=== PATIENT | male | born 1985 | race Caucasian/White ===

== ENCOUNTER 2022-09-06 10:32 | Observation (INO) | payer OTHER, SELFPAY ==
[2022-09-06] VITALS (9 sets, daily range): BP systolic 111–130; BP diastolic 66–98; PULSE 61–94; RESP 16–20; TEMP 36.6–37.7; O2SAT 97–100; BMI 19.6
--- NOTE | ~2022-09-06 | XR_ITS ---
EXAMINATION: XR sm bowel follow through DATE: 09/07/2022 10:18 INDICATION: Small bowel obstruction. Intussusception. TECHNIQUE: Oral contrast was administered, and a time course of radiographs of the abdomen was obtain ed. Fluoroscopy of the small bowel was performed. Fluoroscopy exposure time was 0.8 minutes. The tota l number of images was 22. COMPARISON: CT abdomen and pelvis 09/06/2022 FINDINGS: There are multiple dilated loops of small bowel. There is no focal transition point. The terminal ile um is not well visualized. Transit time from the stomach to proximal colon was approximately 1 hour. IMPRESSION: 1. Dilated small bowel without focal transition point, consistent with adynamic ileus. No intussuscep tion visualized. Reviewed, dictated and finalized at location A. IMPRESSION: 1. Dilated small bowel without focal transition point, consistent with adynamic ileus. No intussusception visualized.
--- NOTE | ~2022-09-06 | XR_ITS ---
XR chest 2V DATE: 09/06/2022 11:18 INDICATION: Left-sided chest pain TECHNIQUE: AP and lateral views COMPARISON: None FINDINGS: Normal heart size. No hilar or mediastinal enlargement. No pulmonary infiltrate or consolid ation, pleural effusion or pulmonary vascular congestion or pneumothorax. IMPRESSION: No active cardiopulmonary disease Reviewed, dictated and finalized at location B.
--- NOTE | ~2022-09-06 | CT_ITS ---
EXAMINATION: CT abdomen pelvis w con INDICATION: Abdominal pain TECHNIQUE: Computed tomographic images of the abdomen and pelvis were obtained after the administrati on of 100 cc of Omnipaque 350 intravenous contrast. The dose-length product (DLP) was 211.48 mGy-cm. Automated exposure control and iterative reconstruction technique were employed. COMPARISON: None available FINDINGS: The lung bases are clear. The heart size is normal. The liver, spleen, pancreas, gallbladde r, and adrenal glands are normal. The kidneys are unremarkable. There are multiple dilated loops of s mall bowel which continue to the level of a small bowel intussusception in the right mid abdomen. The re is no free intraperitoneal gas. No pathologically enlarged abdominal or pelvic lymph nodes are misty ntified. IMPRESSION: 1. Small bowel obstruction due to small bowel intussusception in the right mid abdomen. Reviewed, dictated and finalized at location F.
--- NOTE | 2022-09-06 10:34 | ECG_ITS ---
Measurements Intervals Pep Rate: 76 P: -37 OH: 138 QRS: 39 QRSD: 90 T: 47 QT: 400 QTc: 452 Interpretive Statements SINUS RHYTHM BASELINE ARTIFACT- III NORMAL ECG NO PREVIOUS ECG AVAILABLE FOR COMPARISON Electronically Signed On 09-06-2022 13:41:41 CDT by Marc Vallejo D.O.
--- NOTE | 2022-09-06 12:09 | PC.NURSE ---
pt reports he is a daily drinker and takes xanax he buys off the street. pt reports his last etoh intake was tuesday.
--- NOTE | 2022-09-06 12:33 | ED.CHESTPAIN ---
HPI - Chest Pain General Chief Complaint: Chest Pain Stated Complaint: Chest pain Time Seen by Provider: 09/06/22 12:02 Source: RN notes reviewed History of Present Illness HPI narrative: [facility] from [facility] for [facility]. Patient states the pain began approximately an hour prior to arrival the pain is located over the left side of the chest just underneath the left breast and described as sharp and stabbing in nature. States that the pain does not radiate and it does improve with laying down flat he notes mild shortness of breath with the pain. States the pain is improved with this time is only mildly present. He denies any fevers or chills states he has been having some abdominal pain in the upper abdomen as well but denies any vomiting or diarrhea. States he does have a history of cardiac stents placed 3 years ago but does not follow with cardiology does admit to smoking as well as doing fentanyl Related Data Home Medications Medication Instructions Recorded Confirmed No Home Medications 09/06/22 09/06/22 Allergies Allergy/AdvReac Type Severity Reaction Status Date / Time No Known Allergies Allergy Verified 09/06/22 12:09 Review of Systems Review of Systems: Gen.: Denies fevers or chills ENT: Denies congestion Respiratory: Reports shortness of breath CV: Reports chest pain GI: Reports upper abdominal pain, denies nausea, emesis or diarrhea denies burning, urgency, frequency or hematuria Musculoskeletal: Denies back pain or muscle pain Neuro: Denies numbness, tingling, weakness or focal weakness Skin: Denies rash Except as documented, all other systems reviewed and negative [facility] Past Medical History Medical History Coronary artery disease Surgical History Surgical History No pertinent past surgical history Social History Social History Smoking status: Current every day smoker Alcohol intake: current Alcohol use details: Prior to being incarcerated Substance use: current Substance use type: heroin and prescription drug Last use: 09/03/22 Living arrangements: incarcerated Exam Narrative: APPEARANCE: No acute distress, nontoxic, resting in bed HEENT: Normocephalic, atraumatic, OMM RESPIRATORY: No respiratory distress, clear to auscultation bilaterally with no rhonchi wheezing or rales CARDIOVASCULAR: RRR s murmur ABDOMINAL: Soft nondistended tender to palpation epigastric, right upper quadrant and left upper quadrant no tenderness in the right lower quadrant left lower quadrant no rebound or guarding MUSCULOSKELETAl: Moves all extremities. No clubbing, cyanosis or edema. NEURO: Awake and alert. Following commands, speech normal, no focal deficits SKIN:: Warm, dry. Normal Color PSYCHIATRIC: Normal affect/mood Course Course Emergency Course: Initial arrival presentation: Discussed with DENTAL TECHNOLOGIST Naida Ramirez for Dr. Alvarado for cardiology presentation work-up feels that the patient has 2 negative troponins may be discharged with follow-up as an outpatient per cardiology Called and discussed with Dr. Tracey for general surgery agrees with consult agrees with plan for NG tube Discussed with MYESHA De La Cruz for Dr. Cano for hospitalist service agrees with admission Discussed with patient and family results of workup and diagnosis. Discussed need for admission. Patient and family understand and agree to current treatment plan Patient is refusing NG tube at this time. I had a long discussion with the patient discussed risks and benefits including bowel perforation and patient continues to refuse NG tube Patient attempted to elope once the police had left the facility. Discussed with patient discussed the severity of his condition and does agree to stay Called discussed Dr. Tracey patient refusing NG
[2022-09-06 12:39] LABS: Basophils Absolute Auto 0.1 K/mm3 (0.0-0.1); Basophils Percent Auto 0.4 % (0.2-1.2); Hematocrit 46.7 % (42.0-52.0); Hemoglobin 16.1 g/dL (14.0-18.0); Immature Granulocyte Absolute 0.03 K/mm3 (0.00-0.031); Immature Granulocyte Percent A 0.2 % (0-0.5); Lymphocytes Absolute Auto 1.54 K/mm3 (0.9-3.2); Lymphocytes Percent Auto 12.4 % (18.3-44.2); Mean Corpuscular HGB Conc 34.5 g/dl (32-36); Mean Corpuscular Hemoglobin 29.9 pg (26-34); Mean Corpuscular Volume 86.8 fl (80-100); Mean Platelet Volume 10.6 fl (7.4-10.4); Monocytes Percent Auto 8.1 % (2.6-8.5); Neutrophils Absolute Auto 9.8 K/mm3 (1.3-6.7); Neutrophils Percent Auto 78.9 % (45.5-73.1); Platelet Count Result 270 k/mm3 (150-375); Red Blood Count 5.38 M/mm3 (4.6-6.20); Red Cell Distribution Width 12.9 % (11.5-14.5); White Blood Count 12.4 K/mm3 (4.5-10.0)
[2022-09-06 12:48] LABS: INR 1.1; Prothrombin Time 13.3 Seconds (11.1-14.7)
[2022-09-06 12:49] LABS: Partial Thromboplastin Time 23.7 SECONDS (22.3-36.8)
[2022-09-06 12:52] LABS: Alanine Aminotransferase 48 U/L (6-50); Albumin Level 4.8 g/dL (3.5-5.1); Alkaline Phosphatase 67 U/L (38-126); Anion Gap 13 mmol/L (8-16); Aspartate Amino Transferase 26 U/L (17-59); Bilirubin,Total 0.7 mg/dL (0.2-1.3); Blood Urea Nitrogen 19 mg/dL (9-20); Calcium 9.4 mg/dL (8.4-10.2); Carbon Dioxide 22 mmol/L (22-30); Chloride 108 mmol/L (98-107); Estimated CRCL calculation 152 ml/min; Estimated Glomerular Filt Rate > 60; Glucose 118 mg/dL (65-110); Lipase 73 U/L (23-300); Potassium 3.6 mmol/L (3.4-5.0); Sodium 143 mmol/L (137-145)
[2022-09-06 13:11] LABS: Troponin I < 0.012 ng/mL (0.000-0.034)
[2022-09-06 13:29] LABS: D Dimer 0.35 ug/mL (<0.48)
--- NOTE | 2022-09-06 15:21 | PM.CNGS ---
Assessment and Plan Assessment and plan (1) Small bowel intussusception: Code(s): K56.1 - Intussusception Status: Acute Assessment and Plan: Patient presenting with chest pain and vomiting. He was found to have abdominal tenderness on exam. CT abdomen/pelvis suggests a small bowel obstruction with a transition point at the small bowel intussusception in the right mid abdomen. Small-bowel intussusception in an adult is typically an incidental finding, but it appears that he has an obstruction secondary to this. He does have some lower abdominal tenderness, but no peritoneal signs. Lactic acid pending. We would recommend NG tube placement, bowel rest, and IV fluid hydration. We will further evaluate with a water-soluble small bowel follow-through. Discussed with the patient that if he appears to have a high-grade obstruction from the intussusception, then he could need exploratory surgery. (2) Small bowel obstruction: Code(s): K56.609 - Unspecified intestinal obstruction, unspecified as to partial versus complete obstruction Status: Acute Assessment and Plan: CT suggests secondary to small bowel intussusception. Continue NG tube decompression, bowel rest, and IV fluids. See plan above. (3) Coronary artery disease: Code(s): I25.10 - Atherosclerotic heart disease of [place] coronary artery without angina pectoris Status: Acute (4) Illicit drug use: Code(s): F19.90 - Other psychoactive substance use, unspecified, uncomplicated Status: Acute (5) Tobacco abuse: Code(s): Z72.0 - Tobacco use Status: Acute Plan I have discussed the patient's case and plan of care with Dr. Tracey. History of Present Illness Consult details Consult date: 09/06/22 Reason for consult: other (Small bowel intussusception with bowel obstruction) Requesting physician: Oneil Sotelo DO Narrative: This is a 36-year-old man with a history of coronary artery disease and who was recently incarcerated 3 days ago, who was brought into the ER today for evaluation of chest pain. The patient admits to drug use, reporting use of heroin and benzodiazepines. He reports prior to being incarcerated, he is typically ?too high? to feel any pain so he is unsure when this started. Since incarceration, he has developed chest pain. He also reports intermittent nausea and vomiting over the past 3 days. Denies any abdominal pain. Due to his persistent chest pain, he was brought in for evaluation. [place] [address]. Lactic acid pending. Troponin negative. EKG negative for ischemic changes. Urine toxicology positive for cocaine. Chest x-ray showed no active cardiopulmonary disease. He was found have abdominal tenderness on exam and had a CT abdomen pelvis with contrast, which showed small bowel obstruction due to small bowel intussusception in the right mid abdomen. Vital signs have been stable with no tachycardia or hypotension. Our service was consulted by the ED physician. He is now seen in the ER with an officer at the bedside. He is passing flatus today and his last bowel movement was last night. He denies any previous abdominal surgeries. Denies having similar pain or an episode like this in the past. Review of Systems Review of Systems: All systems reviewed & are unremarkable except as noted in HPI and below Constitutional: Constitutional: Reports no additional constitutional complaints, Denies chills, Denies fatigue, Denies fever(s) and Denies malaise Eyes: Eyes: Reports no additional eye complaints ENT: Reports system reviewed and no additional complaints, except as documented and Denies dizziness Cardiovascular: Cardiovascular: Reports no additional cardiovascular complaints, Reports chest pain and Denies leg edema Respiratory: Respiratory: Reports no additional respiratory complaints, Denies cough and Denies dyspnea Gastrointestinal: Gastrointestinal: Report
[2022-09-06 15:23] LABS: Amphetamine Screen Urine Negative (Negative); Barbiturate Screen Urine Negative (Negative); Benzodiazepines Screen Urine Negative (Negative); Cannabinoid Screen Urine Negative (Negative); Cocaine Screen Urine Positive (Negative); Methadone Screen Urine Negative (Negative); Opiate Screen Urine Negative (Negative); Phencyclidine Screen Urine Negative (Negative)
--- NOTE | 2022-09-06 16:17 | PC.NURSE ---
attempted ng tube placement x2, pt unable to tolerate. provider aware, no new orders
[2022-09-06] MEDS: PANTOPRAZOLE SODIUM IV 40 MG VIAL IV PUSH (16:25)
[2022-09-06] MEDS: MORPHINE SULFATE (*CRX) 2 MG/ML INJ IV PUSH ×2 (16:26→17:18)
[2022-09-06 16:37] LABS: Lactic Acid Reflex 2.9 mmol/L (0.7-2.0)
[2022-09-06 16:38] LABS: Ethanol < 10 mg/dL (<10)
--- NOTE | 2022-09-06 16:58 | PC.NURSE ---
Provider Kay says, to hold off on NG-tube for now pt reluctant to have it placed
[2022-09-06 16:59] LABS: Troponin I < 0.012 ng/mL (0.000-0.034)
--- NOTE | 2022-09-06 17:00 | PM.IMHP ---
H&P: HPI History of Present Illness Date/Time: 09/06/22 17:00 Chief Complaint: Chest and abdominal pain. Narrative: This is a 36-year-old male with coronary artery disease and polysubstance abuse who presented to the emergency department via EMS for evaluation of chest and abdominal pain. Patient provides the following history. He has been incarcerated for the last 3 days and he started to feel unwell the following day after he was brought in due to what he thought were withdrawal symptoms (he does heroin, Xanax, cocaine daily) to include chest and abdominal pain, nausea, vomiting, and goose bumps. The last couple of days he has developed pain in the left anterior chest that he describes as sharp and stabbing in nature. It does not radiate and he has not noticed any aggravating factors. It seems to improve somewhat when lying flat. He also reports feeling a bit short of breath with that. Today he had some discomfort throughout the abdomen as well and he was brought in for evaluation. He denies fever, pleuritic pain, sensations of racing heart, palpitations, hematemesis, melena, and hematochezia. Pertinent labs include a lactic acid of 2.9 and WBC count of 12.4. Chest x-ray showed no acute cardiopulmonary disease and EKG did not show any acute ST segment changes. Initial troponin was negative. A CT of the abdomen and pelvis showed evidence of a small-bowel obstruction due to small bowel intussusception in the right mid abdomen. He has never had similar symptoms in the past. He reports having a normal bowel movement last night and states he has been passing gas today. Review of Systems Review of Systems: Twelve systems were reviewed. No fever, chills, or sweats. No sinus congestion, headache, sore throat, or cough. Except as documented, all other systems were reviewed and are negative. COUNT INCLUDES [facility] Past Medical History Medical History (Updated 09/06/22 @ 22:56 by Dorothy Villanueva PA-C) Coronary artery disease Polysubstance abuse Tobacco abuse Surgical History Surgical History History of cardiac catheterization History of coronary artery stent placement No pertinent past surgical history Family History Family History (Updated 09/06/22 @ 22:52 by Dorothy Villanueva PA-C) Other Family history unknown Social History Social History (Updated 09/06/22 @ 22:53 by Dorothy Villanueva PA-C) Social History: Surrogate medical decision maker: Maxine Quintanilla, significant other. Code status: Full code. Smoking packs per day: 0.5 Smoking cigarettes per day: 10.0 Smoking status: Current every day smoker Alcohol intake: current Alcohol use details: Social alcohol in moderation. Substance use: current Substance use type: marijuana, crack/cocaine, heroin, painkillers and other Other substance usage details: Benzodiazepines. Last use: 09/03/22 Lack of Transportation: YES Lack of Food: Often True Current Housing: I Do Not Have Housing Concerned About Future Housing: YES Difficulty Paying Gas/Electric Bills: Decline to Answer Difficulty Paying for Meds: Decline to Answer Currently Unemployed: Decline to Answer Education: Decline to Answer Difficulty w/ Childcare or Family Care: Decline to Answer Additional living arrangements comments: Lives with girlfriend 5 children. Spiritual care concerns: No Meds Home Medications and Allergies Home Medications Medication Instructions Recorded Confirmed Type No Home Medications 09/06/22 09/06/22 History Allergies Allergy/AdvReac Type Severity Reaction Status Date / Time No Known Allergies Allergy Verified 09/06/22 12:09 Vital Signs Vital Signs - 24 hr 09/06/22 10:35 09/06/22 12:40 09/06/22 13:39 Temperature 98.6 F Pulse Rate 78 69 Respiratory Rate 16 20 Blood Pressure 129/98 H 112/80 Pulse Oximetry 100 97 97 Oxygen Delivery Room Air Room Air Exam Narrative: Gen
[2022-09-06] MEDS: LORazepam INJ (*CRX) 2 MG/ML VIAL 0.5 MG IV PUSH ×2 (17:18→22:01)
[2022-09-06] MEDS: SODIUM CHLORIDE 0.9% IV 1,000 ML 125 ML IV CONT ×2 (17:18→21:14)
[2022-09-06 18:27] LABS: Troponin I < 0.012 ng/mL (0.000-0.034)
[2022-09-06 19:26] LABS: Reflex Lactic Acid Yes or No Add Lactic
--- NOTE | 2022-09-06 20:42 | ADMGEN ---
This patient, You Erickson, was admitted to IMU Room 214-01. Patient/family oriented to hospital policies and general routines including ID bracelet, bed and alarms, visiting hours, pain management, procedures, bathroom and other care routines, personal items, smoking policy, room service/diet, and visiting hours. Information on how to activate the Rapid Response Team has been discussed. Patient/Family are encouraged to report perceived risks to care and to ask questions if they do not understand what they are told or what they should do.
[2022-09-06] MEDS: MORPHINE SULFATE (*CRX) 4 MG/ML INJ IV PUSH (22:01)
[2022-09-06] MEDS: NICOTINE (*PBKC) 21 MG PATCH 1 PATCH TRANSDERM (23:36)
[2022-09-07] VITALS (8 sets, daily range): BP systolic 114–116; BP diastolic 76–79; PULSE 64–73; RESP 16–18; TEMP 36.4–36.9; O2SAT 99–100
[2022-09-07] MEDS: MORPHINE SULFATE (*CRX) 4 MG/ML INJ IV PUSH ×3 (02:37→10:21)
[2022-09-07] MEDS: LORazepam INJ (*CRX) 2 MG/ML VIAL 0.5 MG IV PUSH ×2 (04:35→10:38)
[2022-09-07 05:15] LABS: Basophils Absolute Auto 0.1 K/mm3 (0.0-0.1); Basophils Percent Auto 0.5 % (0.2-1.2); Eosinophils Percent Auto 0.3 % (0-4.4); Hematocrit 43.9 % (42.0-52.0); Hemoglobin 14.7 g/dL (14.0-18.0); Immature Granulocyte Absolute 0.03 K/mm3 (0.00-0.031); Immature Granulocyte Percent A 0.3 % (0-0.5); Lymphocytes Absolute Auto 2.36 K/mm3 (0.9-3.2); Lymphocytes Percent Auto 22.1 % (18.3-44.2); Mean Corpuscular HGB Conc 33.5 g/dl (32-36); Mean Corpuscular Hemoglobin 29.9 pg (26-34); Mean Corpuscular Volume 89.2 fl (80-100); Mean Platelet Volume 10.8 fl (7.4-10.4); Monocytes Absolute Auto 0.8 K/mm3 (0.1-0.6); Monocytes Percent Auto 7.8 % (2.6-8.5); Neutrophils Absolute Auto 7.4 K/mm3 (1.3-6.7); Platelet Count Result 231 k/mm3 (150-375); Red Blood Count 4.92 M/mm3 (4.6-6.20); Red Cell Distribution Width 12.8 % (11.5-14.5); White Blood Count 10.7 K/mm3 (4.5-10.0)
[2022-09-07 05:22] LABS: Alanine Aminotransferase 38 U/L (6-50); Alkaline Phosphatase 60 U/L (38-126); Anion Gap 10 mmol/L (8-16); Aspartate Amino Transferase 24 U/L (17-59); Blood Urea Nitrogen 20 mg/dL (9-20); Calcium 8.6 mg/dL (8.4-10.2); Carbon Dioxide 22 mmol/L (22-30); Chloride 110 mmol/L (98-107); Estimated CRCL calculation 112 ml/min; Estimated Glomerular Filt Rate > 60; Glucose 104 mg/dL (65-110); Magnesium 2.2 mg/dL (1.6-2.3); Potassium 3.8 mmol/L (3.4-5.0); Sodium 142 mmol/L (137-145)
[2022-09-07] MEDS: SODIUM CHLORIDE 0.9% IV 1,000 ML 125 ML IV CONT ×2 (05:25→13:08)
--- NOTE | 2022-09-07 09:01 | PM.PNGS ---
Progress Note: A&P Assessment and Plan (1) Small bowel intussusception: Code(s): K56.1 - Intussusception Status: Acute Assessment and Plan: CT suggested small bowel obstruction due to small bowel intussusception. Ordered a water-soluble SBFT yesterday that apparently was cancelled at some point, but we were unaware. This has been re-ordered and he is getting this test this morning. Will await results. He did not tolerate multiple attempts at the NG tube in the ER. Will keep him NPO with IV fluid hydration for now. Antiemetic added. (2) Small bowel obstruction: Code(s): K56.609 - Unspecified intestinal obstruction, unspecified as to partial versus complete obstruction Status: Acute Assessment and Plan: Will await SBFT this morning. Bowels are moving, which suggests he does not have a high grade obstruction. Continue IV fluids, NPO. Plan I have discussed the patient's case and plan of care with Dr. Tracey. Subjective Subjective Date/Time Seen: 09/07/22 08:15 Patient reports: flatus, bowel movement, nausea, vomiting and afebrile Interval history: Patient seen this morning prior to going down for the SBFT. At some point, my order for the water-soluble SBFT got cancelled yesterday evening per nursing and they notified the Hospitalist who tried to re-enter the order. Radiology is up at the bedside now to take him down for the test. Per the patient, he reports nausea this morning and states he vomited twice through the night. He also reports multiple large liquid bowel movements through the night. He is still having substernal chest pain and now complaining more of epigastric abdominal pain. Per nursing, they were notified by shift commander that he had three large liquid BMs but they were not told in report that he had been vomiting. Review of Systems Review of Systems: ROS unchanged Exam Const: General: comfortable and no acute distress Nutritional Appearance: thin Orientation/consciousness: patient oriented x3 GI: Inspection: non-distended GI Palp: Yes Soft to palpation, Yes Tenderness to palpation present (GI) (mild diffuse tenderness to palpation), No Guarding due to palpation present (GI), No Rebound tenderness present and Yes Other GI palpation findings present (no peritoneal signs) Auscultation: normal bowel sounds Objective Data Vital Signs Vital Signs: Vital Signs - 24 hr 09/06/22 10:35 09/06/22 12:40 09/06/22 13:39 Temperature 98.6 F Pulse Rate 78 69 Respiratory Rate 16 20 Blood Pressure 129/98 H 112/80 Pulse Oximetry 100 97 97 Oxygen Delivery Room Air Room Air 09/06/22 17:15 09/06/22 19:55 09/06/22 20:51 Temperature 99.8 F H Pulse Rate 68 61 65 Respiratory Rate 18 18 18 Blood Pressure 122/90 111/97 H 130/81 Pulse Oximetry 100 97 100 Oxygen Delivery 09/06/22 20:47 09/06/22 22:00 09/06/22 23:29 Temperature 97.8 F Pulse Rate 94 74 74 Respiratory Rate 18 Blood Pressure 124/66 Pulse Oximetry 99 Oxygen Delivery 09/06/22 21:00 09/07/22 00:00 09/07/22 00:00 Temperature Pulse Rate 72 Respiratory Rate Blood Pressure Pulse Oximetry Oxygen Delivery Room Air Room Air 09/07/22 04:00 09/07/22 02:00 09/07/22 04:00 Temperature 97.7 F Pulse Rate 73 67 64 Respiratory Rate 18 Blood Pressure 114/79 Pulse Oximetry 99 Oxygen Delivery 09/07/22 06:00 09/07/22 04:00 09/07/22 08:00 Temperature 97.6 F Pulse Rate 65 67 Respiratory Rate 16 Blood Pressure 116/76 Pulse Oximetry 100 Oxygen Delivery Room Air Intake/Output Intake/Output: Intake & Output 09/04/22 09/05/22 09/06/22 09/07/22 23:59 23:59 23:59 23:59 Intake Total 1000 1000 Balance 1000 1000 Meds/Results Medications: Active Medications Generic Name Dose Route Start Last Admin Trade Name Freq PRN Reason Stop Dose Admin Sodium Chloride 1,000 mls @ 100 mls/hr 09/06/22 15:10 09/07/22 05:25 Normal Saline Iv IV CONT
[2022-09-07] MEDS: ONDANSETRON INJ 4 MG/2 ML VIAL IV PUSH (10:23)
[2022-09-07] MEDS: NICOTINE (*PBKC) 21 MG PATCH 1 PATCH TRANSDERM (10:39)
--- NOTE | 2022-09-07 12:51 | PM.IMPN ---
Progress Note: A&P Assessment and Plan (1) Small bowel obstruction: Code(s): K56.609 - Unspecified intestinal obstruction, unspecified as to partial versus complete obstruction Status: Acute Assessment and Plan: CT shows suggestions of obstruction related to small bowel intussusception. Small-bowel follow-through noted. Patent has no NG tube in. Await surgical consult. (2) Small bowel intussusception: Code(s): K56.1 - Intussusception Status: Acute Assessment and Plan: Surgery consulted for findings of small-bowel intussusception. Surgery recommends NG tube insertion at which she currently refuses. Water-soluble small-bowel follow-through has been ordered. Await surgical evaluation (3) Coronary artery disease: Code(s): I25.10 - Atherosclerotic heart disease of [place] coronary artery without angina pectoris Status: Acute Assessment and Plan: Patient came in complaining of atypical left-sided chest pain. Troponin was normal. EKG does not show any acute ST segment changes. Continue to monitor closely on telemetry and trend troponins. (4) Atypical chest pain: Code(s): R07.89 - Other chest pain Status: Acute Assessment and Plan: Plan is as detailed above. (5) Polysubstance abuse: Code(s): F19.10 - Other psychoactive substance abuse, uncomplicated Status: Acute Assessment and Plan: Patient uses a multitude of substance since including heroin, Xanax, cocaine, amongst others for many years. He has previously tried rehab. Lorazepam available as needed to prevent severe withdrawal symptoms and seizures. (6) Tobacco abuse: Code(s): Z72.0 - Tobacco use Status: Acute Assessment and Plan: Nicotine patch available per patient request. Subjective Date/time seen: 09/07/22 12:51 No new complaints Reports some mild abdominal pain. Exam Narrative: General: Thin male in the semi-Robbins position in bed in no acute distress. Weight: 63.9 kg. BMI: 19.6. HEENT: PERRL, EOMI. Sclera anicteric. Some bleeding from the right naris from prior NG tube attempt. Tacky mucous membranes. Several missing teeth in the front. Neck: Supple. Respiratory: Lungs are clear to auscultation bilaterally. Cardiovascular: Regular rate and rhythm with S1-S2. Chest: No tenderness to palpation over the chest wall. Gastrointestinal: Abdomen is soft and nondistended with positive bowel sounds. He is mildly tender to palpation throughout the periumbilical region. No guarding or rebound tenderness. Skin: Warm and dry. No rash or lesions on limited exam. Extremities: No cyanosis, clubbing, or edema. Radial and pedal pulses intact. Neurological: Alert. Cranial nerves 2-12 are grossly intact. No gross focal deficits to casual conversation. Psychiatric: Cooperative. Appropriate mood and affect. Objective Data Vital Signs Vital Signs: Vital Signs - 24 hr 09/06/22 13:39 09/06/22 17:15 09/06/22 19:55 Temperature Pulse Rate 69 68 61 Respiratory Rate 20 18 18 Blood Pressure 112/80 122/90 111/97 H Pulse Oximetry 97 100 97 Oxygen Delivery 09/06/22 20:51 09/06/22 20:47 09/06/22 22:00 Temperature 99.8 F H Pulse Rate 65 94 74 Respiratory Rate 18 Blood Pressure 130/81 Pulse Oximetry 100 Oxygen Delivery 09/06/22 23:29 09/06/22 21:00 09/07/22 00:00 Temperature 97.8 F Pulse Rate 74 Respiratory Rate 18 Blood Pressure 124/66 Pulse Oximetry 99 Oxygen Delivery Room Air Room Air 09/07/22 00:00 09/07/22 04:00 09/07/22 02:00 Temperature 97.7 F Pulse Rate 72 73 67 Respiratory Rate 18 Blood Pressure 114/79 Pulse Oximetry 99 Oxygen Delivery 09/07/22 04:00 09/07/22 06:00 09/07/22 04:00 Temperature Pulse Rate 64 65 Respiratory Rate Blood Pressure Pulse Oximetry Oxygen Delivery Room Air 09/07/22 08:00 09/07/22 11:58 Temperature 97.6 F 98.5 F Pulse Rate 67 68
[2022-09-07] MEDS: chlordiazePOXIDE (*CRX) 25 MG CAPSULE PO (13:06)
--- NOTE | 2022-09-07 14:17 | PC.NURSE ---
Patient demanded to leave AMA. Charge nurse notified. Dr. Acevedo notified. Patient was educated about his ileus and the risk of severe injury or if he did not continue his stay in the hospital for treatment. Patient stated his daughter was in a car accident and he didn't care. Patient took his IV apart and got up to get himself dressed. Patient signed AMA papers and ambulated himself out of the hospital. As the patient was leaving I once again tried to educate the patient about the risks of leaving AMA including bowel injury, bowel perforation, and . He said he would go to another hospital in [place] after he makes sure his daughter is OK.
--- NOTE | 2022-09-30 07:20 | PM.DS ---
DS: Admitting Diagnosis Discharge Date 09/07/22 Admitting Diagnosis Paralytic ileus and polysubstance abuse DS: Discharge Diagnosis Discharge Diagnosis (1) Small bowel obstruction: Code(s): K56.609 - Unspecified intestinal obstruction, unspecified as to partial versus complete obstruction Status: Acute Assessment and Plan: CT shows suggestions of obstruction related to small bowel intussusception. Small-bowel follow-through noted. Patent has no NG tube in. Await surgical consult. (2) Small bowel intussusception: Code(s): K56.1 - Intussusception Status: Acute Assessment and Plan: Surgery consulted for findings of small-bowel intussusception. Surgery recommends NG tube insertion at which she currently refuses. Water-soluble small-bowel follow-through has been ordered. Await surgical evaluation (3) Coronary artery disease: Code(s): I25.10 - Atherosclerotic heart disease of [place] coronary artery without angina pectoris Status: Acute Assessment and Plan: Patient came in complaining of atypical left-sided chest pain. Troponin was normal. EKG does not show any acute ST segment changes. Continue to monitor closely on telemetry and trend troponins. (4) Atypical chest pain: Code(s): R07.89 - Other chest pain Status: Acute Assessment and Plan: Plan is as detailed above. (5) Polysubstance abuse: Code(s): F19.10 - Other psychoactive substance abuse, uncomplicated Status: Acute Assessment and Plan: Patient uses a multitude of substance since including heroin, Xanax, cocaine, amongst others for many years. He has previously tried rehab. Lorazepam available as needed to prevent severe withdrawal symptoms and seizures. (6) Tobacco abuse: Code(s): Z72.0 - Tobacco use Status: Acute Assessment and Plan: Nicotine patch available per patient request. DS: Summary Hospital Course Hospital Course: Admitted for a paralytic ileus and polysubstance abuse. Patient was treated conservatively and was improving however he left AMA. Time Spent with Patient Time attestation: Total time spent providing and/or coordinating discharge services: Exam Narrative: General: Thin male in the semi-Robbins position in bed in no acute distress. Weight: 63.9 kg. BMI: 19.6. HEENT: PERRL, EOMI. Sclera anicteric. Some bleeding from the right naris from prior NG tube attempt. Tacky mucous membranes. Several missing teeth in the front. Neck: Supple. Respiratory: Lungs are clear to auscultation bilaterally. Cardiovascular: Regular rate and rhythm with S1-S2. Chest: No tenderness to palpation over the chest wall. Gastrointestinal: Abdomen is soft and nondistended with positive bowel sounds. He is mildly tender to palpation throughout the periumbilical region. No guarding or rebound tenderness. Skin: Warm and dry. No rash or lesions on limited exam. Extremities: No cyanosis, clubbing, or edema. Radial and pedal pulses intact. Neurological: Alert. Cranial nerves 2-12 are grossly intact. No gross focal deficits to casual conversation. Psychiatric: Cooperative. Appropriate mood and affect. Discharge Plan Discharge Consulting providers: Shirley Johnson ; Dorothy Villanueva ; Mustapha Randhawa ; Jl Erickson ; Marc Vallejo ; Miguel Branham V. Patient Disposition: Left Against Medical Advice Discharge Medications: No Action No Home Medications Date of admission: 09/06/22 15:08 Primary Care Provider: UNKNOWN,DOCTOR Admitting Provider: Jose Caon Attending physician on admission: Arnel Acevedo Condition: Guarded Prognosis
== END 2022-09-07 13:52 | disposition left against medical advice (07) ==
LOC: ANHED 12:21 → ANHIMU 19:00
PROVIDERS: Emergency Medicine; Admitting Provider Internal Medicine; Emergency Provider Emergency Medicine; Visit Provider Chiropractor
DX: K56.1 Intussusception (principal); K56.609 Unspecified intestinal obstruction, unspecified as to partial versus complete obstruction; R07.89 Other chest pain; I25.10 Atherosclerotic heart disease of native coronary artery without angina pectoris; F19.10 Other psychoactive substance abuse, uncomplicated; F17.210 Nicotine dependence, cigarettes, uncomplicated
CPT/HCPCS: 36415; 71046; 74177; 74250; 80053; 80307; 83605; 83690; 83735; 84484; 85025; 85380; 85610; 85730; 93005; 96361; 96374; 96375; 96376; 99285; A9270; C9113; G0378; G0379; J2060; J2270; J2405; J7030; Q9967

== ENCOUNTER 2022-09-07 15:22 | Inpatient (IN) | payer OTHER, SELFPAY ==
[2022-09-07] VITALS (24 sets, daily range): BP systolic 97–121; BP diastolic 67–89; PULSE 59–77; RESP 17–28; TEMP 37; O2SAT 97–100
--- NOTE | ~2022-09-07 | XR_ITS ---
EXAMINATION: XR abdomen/kub 1V INDICATION: Abdominal pain TECHNIQUE: Supine views of the abdomen were obtained on 2 radiographs. COMPARISON: Small bowel follow-through from today FINDINGS: Contrast from earlier small bowel follow-through partially opacifies the bowel. There is pe rsistent mild dilatation of small bowel without focal transition point. No free intraperitoneal gas i s identified. IMPRESSION: 1. Mildly dilated small bowel without focal transition point identified, consistent with adynamic ile us. Reviewed, dictated and finalized at location F. IMPRESSION: 1. Mildly dilated small bowel without focal transition point identified, consis tent with adynamic ileus.
--- NOTE | 2022-09-07 19:41 | ED.GENADULT ---
HPI - General Adult General Chief complaint: Abdominal Pain Stated complaint: bowel blockage in my stomach Time Seen by Provider: 09/07/22 19:19 History of Present Illness HPI narrative: Patient 36-year-old gentleman who presents the emergency department with chief complaint of abdominal pain. Patient was recently admitted to the hospital for a possible intussusception and bowel obstruction the patient had a small bowel follow-through today that showed just an ileus the patient left AMA after his daughter was involved in a car accident. Patient reports he continues to have pain and return to the emergency department after he was able to get things back in order. Related Data Home Medications Medication Instructions Recorded Confirmed No Home Medications 09/06/22 09/06/22 Allergies Allergy/AdvReac Type Severity Reaction Status Date / Time No Known Allergies Allergy Verified 09/06/22 12:09 Review of Systems Review of Systems: A 10 system review of systems was completed on the patient and is negative except for what is stated in the HPI. Nursing and ancillary documentation was reviewed. [facility] Past Medical History Medical History Coronary artery disease Polysubstance abuse Tobacco abuse Surgical History Surgical History History of cardiac catheterization History of coronary artery stent placement No pertinent past surgical history Family History Family History Other Family history unknown Social History Social History Social History: Surrogate medical decision maker: Maxine Quintanilla, significant other. Code status: Full code. Smoking packs per day: 0.5 Smoking cigarettes per day: 10.0 Smoking status: Current every day smoker Alcohol intake: current Alcohol use details: Social alcohol in moderation. Substance use: current Substance use type: marijuana, crack/cocaine, heroin, painkillers and other Other substance usage details: Benzodiazepines. Last use: 09/03/22 Lack of Transportation: YES Lack of Food: Often True Current Housing: I Do Not Have Housing Concerned About Future Housing: YES Difficulty Paying Gas/Electric Bills: Decline to Answer Difficulty Paying for Meds: Decline to Answer Currently Unemployed: Decline to Answer Education: Decline to Answer Difficulty w/ Childcare or Family Care: Decline to Answer Additional living arrangements comments: Lives with girlfriend 5 children. Spiritual care concerns: No Exam Narrative: GENERAL: Well-appearing, well-nourished, and in no acute distress. HEAD: Normocephalic, atraumatic. EYES: PERRLA and EOMI. ENT: Nares clear, no rhinorrhea or epistaxis. Mucous membranes moist. NECK: Supple. CHEST: Clear to auscultation. No respiratory distress. HEART: Regular rate and rhythm. No murmur heard. Normal peripheral pulses. ABDOMEN: Soft, diffuse tenderness to palpation, nondistended, normal active bowel sounds. EXTREMITIES: Normal range of motion. No edema. SKIN: Warm, dry, no rash. NEURO: No focal deficits. Alert and oriented x3. PSYCH: Normal mood and affect. Course Vital Signs Vital signs: Vital Signs Temperature 37.0 C 09/07/22 15:32 Pulse Rate 71 09/07/22 15:32 Blood Pressure 121/79 09/07/22 15:32 Pulse Oximetry 100 09/07/22 15:32 Temperature 37.0 C 09/07/22 15:32 Pulse Rate 71 09/07/22 15:32 Blood Pressure 121/79 09/07/22 15:32 Pulse Oximetry 100 09/07/22 15:32 Medical Decision Making MDM Narrative Medical decision making narrative: Differential diagnosis includes small bowel obstruction ileus, electrolyte abnormality, Imaging was reviewed from the patient's inpatient stay KUB in the emergency department showed
[2022-09-07] MEDS: ONDANSETRON INJ 4 MG/2 ML VIAL IV PUSH (19:54)
[2022-09-07] MEDS: MORPHINE SULFATE (*CRX) 4 MG/ML INJ IV PUSH (20:02)
[2022-09-07] MEDS: SODIUM CHLORIDE 0.9% IV 1,000 ML 125 ML IV CONT (20:07)
[2022-09-07 20:21] LABS: Basophils Absolute Auto 0.1 K/mm3 (0.0-0.1); Basophils Percent Auto 0.4 % (0.2-1.2); Eosinophils Absolute Auto 0.1 K/mm3 (0-0.3); Eosinophils Percent Auto 0.5 % (0-4.4); Hematocrit 40.5 % (42.0-52.0); Hemoglobin 13.5 g/dL (14.0-18.0); Immature Granulocyte Absolute 0.04 K/mm3 (0.00-0.031); Immature Granulocyte Percent A 0.3 % (0-0.5); Lymphocytes Absolute Auto 2.13 K/mm3 (0.9-3.2); Lymphocytes Percent Auto 17.8 % (18.3-44.2); Mean Corpuscular HGB Conc 33.3 g/dl (32-36); Mean Corpuscular Hemoglobin 29.9 pg (26-34); Mean Corpuscular Volume 89.8 fl (80-100); Mean Platelet Volume 10.1 fl (7.4-10.4); Monocytes Absolute Auto 0.9 K/mm3 (0.1-0.6); Monocytes Percent Auto 7.4 % (2.6-8.5); Neutrophils Absolute Auto 8.8 K/mm3 (1.3-6.7); Neutrophils Percent Auto 73.6 % (45.5-73.1); Platelet Count Result 204 k/mm3 (150-375); Red Blood Count 4.51 M/mm3 (4.6-6.20); Red Cell Distribution Width 12.5 % (11.5-14.5)
[2022-09-07 20:31] LABS: Lactic Acid Reflex 1.1 mmol/L (0.7-2.0)
[2022-09-07 20:32] LABS: Alanine Aminotransferase 33 U/L (6-50); Albumin Level 3.9 g/dL (3.5-5.1); Alkaline Phosphatase 50 U/L (38-126); Anion Gap 5 mmol/L (8-16); Aspartate Amino Transferase 22 U/L (17-59); Bilirubin,Total 0.8 mg/dL (0.2-1.3); Blood Urea Nitrogen 17 mg/dL (9-20); Calcium 8.2 mg/dL (8.4-10.2); Carbon Dioxide 25 mmol/L (22-30); Chloride 111 mmol/L (98-107); Estimated CRCL calculation 153 ml/min; Estimated Glomerular Filt Rate > 60; Glucose 93 mg/dL (65-110); Lipase 85 U/L (23-300); Magnesium 2.2 mg/dL (1.6-2.3); Potassium 3.4 mmol/L (3.4-5.0); Sodium 141 mmol/L (137-145)
[2022-09-07 20:33] LABS: INR 1.1; Partial Thromboplastin Time 23.6 SECONDS (22.3-36.8); Prothrombin Time 13.8 Seconds (11.1-14.7)
--- NOTE | 2022-09-07 22:00 | PM.IMHP ---
H&P: HPI History of Present Illness Date/Time: 09/07/22 22:00 Chief Complaint: Abdominal pain. Narrative: This is a 36-year-old male with coronary artery disease and polysubstance abuse who presented to the emergency department via EMS for evaluation of abdominal pain. Patient is known to myself as I admitted him to the hospital last evening after he presented with the same complaints. At the time a CT of the abdomen/pelvis showed evidence of a small-bowel obstruction due to small bowel intussusception in the right mid abdomen. He was admitted overnight and had a small-bowel follow-through this morning which showed adynamic ileus without evidence of intussusception. He left against medical advice shortly thereafter due to a family problem. He return to the emergency department within an hour so as the family issue was not as severe as he had once thought. KUB this evening continues to show evidence of adynamic ileus. He is being admitted in this setting due to uncontrolled pain. He was incontinent of a large amount of loose to in radiology today and he has bowel sounds on exam. He denies nausea and vomiting. He also denies fever, chills, sweats, chest pain, and shortness of breath. Review of Systems Review of Systems: Twelve systems were reviewed. He has had a longstanding history of drug abuse including daily cocaine, heroin, and Xanax use. He is not having any active withdrawal symptoms at this time. Except as documented, all other systems were reviewed and are negative. [facility] Past Medical History Medical History Coronary artery disease Polysubstance abuse Tobacco abuse Surgical History Surgical History History of cardiac catheterization History of coronary artery stent placement No pertinent past surgical history Family History Family History Other Family history unknown Social History Social History Social History: Surrogate medical decision maker: Maxine Quintanilla, significant other. Code status: Full code. Smoking packs per day: 0.5 Smoking cigarettes per day: 10.0 Years smoked: 20 Smoking pack-years: 10.00 Smoking status: Light tobacco smoker Alcohol intake: current Alcohol use details: Social alcohol in moderation. Substance use: current Substance use type: crack/cocaine, heroin, sedatives, opiates and IV drugs Other substance usage details: Benzodiazepines. Last use: 09/03/22 Lack of Transportation: No Lack of Food: Sometimes True Current Housing: I Have Housing Concerned About Future Housing: No Difficulty Paying Gas/Electric Bills: Decline to Answer Difficulty Paying for Meds: No Currently Unemployed: Decline to Answer Education: Grade School Difficulty w/ Childcare or Family Care: No Additional living arrangements comments: Lives with girlfriend 5 children. Spiritual care concerns: No Meds Home Medications and Allergies Home Medications Medication Instructions Recorded Confirmed Type No Home Medications 09/06/22 09/06/22 History Allergies Allergy/AdvReac Type Severity Reaction Status Date / Time No Known Allergies Allergy Verified 09/06/22 12:09 Vital Signs Vital Signs - 24 hr 09/07/22 15:32 09/07/22 18:54 09/07/22 20:00 Temperature 98.6 F Pulse Rate 71 72 Respiratory Rate 20 17 Blood Pressure 121/79 119/87 Pulse Oximetry 100 97 09/07/22 20:02 09/07/22 20:15 09/07/22 20:16 Temperature Pulse Rate 69 68 68 Respiratory Rate 28 H 27 H 23 H Blood Pressure 115/80 118/81 Pulse Oximetry 09/07/22 20:30 09/07/22 20:31 09/07/22 20:46 Temperature Pulse Rate 67 63 59 L Respiratory Rate 24 H 23 H 25 H Blood Pressure 119/87 115/81 Pulse Oximetry 09/07/22 21:01 09/07/22 21:1
[2022-09-07 22:24] LABS: Appearance Urine Clear (Clear); Bilirubin Urine Negative (Negative); Blood Urine Negative (Negative); Color Urine Yellow (Yellow); Glucose Urine UA Negative (Negative); Ketones Urine Negative (Negative); Leukocyte Esterase Ur Negative LEU/UL (Negative); Nitrate Urine Negative (Negative); Protein Urine Negative (Negative); Specific Grav Ur 1.028 (1.001-1.035); Urobilinogen Urine 0.2 mg/dL (<2.0); pH Urine 6.5 (5.0-9.0)
[2022-09-07 22:41] LABS: Add Urine Microscopic? NO
[2022-09-07] MEDS: NICOTINE (*PBKC) 21 MG PATCH 1 PATCH TRANSDERM (23:15)
[2022-09-08] VITALS (8 sets, daily range): BP systolic 95–126; BP diastolic 60–90; PULSE 62–78; RESP 16–26; TEMP 36.6–37.1; O2SAT 10–99; BMI 18.8
[2022-09-08] MEDS: MORPHINE SULFATE (*CRX) 4 MG/ML INJ 2 MG IV PUSH ×6 (00:58→20:36)
--- NOTE | 2022-09-08 04:14 | PC.NURSE ---
Pt admitted to 316-2 from the ER with c/o abd pain KUB- ileus. Pt left AMA yesterday for same complaint after diagnosis of ileus. Then returned to ER. Pt alert cooperative, keeps eyes closed with his long hair in face. C/O pain 10/10 upon admission- explained pain control- meds ordered. IVF as ordered Explained diet is clear liquids. Pt with history of previous cardiac cath with stent, etoh, tobacco , polysubstance - lives with girlfriend and 5 children. Fall/safety precautions explained . Pt verbalized understanding. Bed alarm on ,call light in reach - Bed control explained and within reach Continue to monitor.
[2022-09-08] MEDS: LORazepam INJ (*CRX) 2 MG/ML VIAL 0.5 MG IV PUSH ×4 (04:35→23:32)
[2022-09-08 06:22] LABS: Basophils Percent Auto 0.4 % (0.2-1.2); Eosinophils Absolute Auto 0.1 K/mm3 (0-0.3); Eosinophils Percent Auto 1.2 % (0-4.4); Hematocrit 38.1 % (42.0-52.0); Hemoglobin 12.8 g/dL (14.0-18.0); Immature Granulocyte Absolute 0.03 K/mm3 (0.00-0.031); Immature Granulocyte Percent A 0.3 % (0-0.5); Lymphocytes Absolute Auto 2.51 K/mm3 (0.9-3.2); Lymphocytes Percent Auto 27.8 % (18.3-44.2); Mean Corpuscular HGB Conc 33.6 g/dl (32-36); Mean Corpuscular Hemoglobin 30.5 pg (26-34); Mean Corpuscular Volume 90.7 fl (80-100); Mean Platelet Volume 10.8 fl (7.4-10.4); Monocytes Absolute Auto 0.7 K/mm3 (0.1-0.6); Monocytes Percent Auto 7.5 % (2.6-8.5); Neutrophils Absolute Auto 5.7 K/mm3 (1.3-6.7); Neutrophils Percent Auto 62.8 % (45.5-73.1); Platelet Count Result 187 k/mm3 (150-375); Red Cell Distribution Width 12.3 % (11.5-14.5)
[2022-09-08 06:30] LABS: Alanine Aminotransferase 29 U/L (6-50); Albumin Level 3.3 g/dL (3.5-5.1); Alkaline Phosphatase 44 U/L (38-126); Anion Gap 6 mmol/L (8-16); Aspartate Amino Transferase 22 U/L (17-59); Bilirubin,Total 0.8 mg/dL (0.2-1.3); Blood Urea Nitrogen 16 mg/dL (9-20); Calcium 8.1 mg/dL (8.4-10.2); Carbon Dioxide 24 mmol/L (22-30); Chloride 108 mmol/L (98-107); Estimated CRCL calculation 108 ml/min; Estimated Glomerular Filt Rate > 60; Glucose 91 mg/dL (65-110); Potassium 3.6 mmol/L (3.4-5.0); Sodium 138 mmol/L (137-145)
[2022-09-08] MEDS: SODIUM CHLORIDE 0.9% IV 1,000 ML 75 ML IV CONT (09:02)
[2022-09-08] MEDS: NICOTINE (*PBKC) 21 MG PATCH 1 PATCH TRANSDERM (09:02)
--- NOTE | 2022-09-08 16:05 | PM.IMPN ---
Progress Note: A&P Assessment and Plan (1) Adynamic ileus: Code(s): K56.0 - Paralytic ileus Status: Acute Assessment and Plan: patient presented with complaints of abdominal pain 1 hour following leaving the hospital against medical advise abdominal x-ray on presentation showed mildly dilated small bowel without focal transition point identified consistent with adynamic ileus small-bowel follow-through completed earlier that day from prior admission with similar findings, no evidence of intussusception patient is tolerating clear liquid diet no nausea or vomiting. no indication for NG tube at this time. repeat KUB tomorrow (2) Polysubstance abuse: Code(s): F19.10 - Other psychoactive substance abuse, uncomplicated Status: Acute Assessment and Plan: daily drug use including cocaine, heroin, and benzodiazepines lorazepam as needed for withdrawal symptoms (3) Tobacco abuse: Code(s): Z72.0 - Tobacco use Status: Acute Assessment and Plan: patient smokes 1/2 pack per day nicotine patch as needed during admission (4) Alcohol abuse: Code(s): F10.10 - Alcohol abuse, uncomplicated Status: Acute Assessment and Plan: patient admits to drinking 1/2 bottle of [place] per day and 1/2 case of [place] Light per day initiate CIWA protocol begin thiamine and folic acid Ativan as needed for withdrawal symptoms consider Librium taper if CIWA scores become more elevated (5) Coronary artery disease: Code(s): I25.10 - Atherosclerotic heart disease of [place] coronary artery without angina pectoris Status: Acute Assessment and Plan: no acute issues at this time Subjective Date/time seen: 09/08/22 16:05 Interval history: date of service: 09/08/2022 You Erickson is a 36-year-old male with a history of polysubstance abuse, alcohol abuse, tobacco abuse, and coronary artery disease who is seen in follow-up for ileus. Patient states that his abdominal pain is rated 30/10 today. He describes this as a sharp and stabbing sensation and states that it is not improved with pain medication. He denies abdominal cramping or bloating. Denies nausea or vomiting. He is passing flatus and reports having incontinent stools yesterday. Has not been out of bed today as he feels he has too much pain. Endorses urinary frequency but denies dysuria or hematuria. He is tolerating clear liquids. He endorses occasional dizziness and lightheadedness with onset pain. He denies fevers or chills but states that he is freezing. The patient admits to drinking half a bottle of [place] and half a case of bud light per day. Review of Systems Review of Systems: All systems reviewed & are unremarkable except as noted in HPI and below Exam Narrative: General: well-nourished, well-appearing 36-year-old male, sitting up in bed, comfortable, NARD Neuro: awake, alert and oriented x4, speech clear, no focal neuro deficits noted HEENMT: normocephalic, atraumatic, EOMI, sclerae anicteric Respiratory: clear to auscultation bilaterally, nonlabored breathing Cardio: regular rate, regular rhythm with S1-S2 Abdomen: nondistended, normoactive bowel sounds, soft, diffusely tender to palpation Extremities: no edema, erythema, or tenderness to palpation Skin: no rashes or lesions, warm and dry Psych: appropriate mood and affect, judgment and insight intact Objective Data Vital Signs Vital Signs: Vital Signs - 24 hr 09/07/22 18:54 09/07/22 20:00 09/07/22 20:02 Temperature Pulse Rate 72 69 Respiratory Rate 20 17 28 H Blood Pressure 119/87 115/80 Pulse Oximetry 97 Oxygen Delivery 09/07/22 20:15 09/07/22 20:16 09/07/22 20:30 Temperature Pulse Rate 68 68 67 Respiratory Rate 27 H 23 H 24 H Blood Pressure 118/81 Pulse Oximetry Oxygen Delivery 09/07/22 20:31 09/07/22 20:46 09/07/22 21:01 Temperat
[2022-09-09] MEDS: MORPHINE SULFATE (*CRX) 4 MG/ML INJ 2 MG IV PUSH ×4 (00:20→13:09)
--- NOTE | 2022-09-09 01:42 | PC.NURSE ---
Pt basket person light every 20- 30 minutes requests food... bed alarm going off, pt getting out of bed. IV alarms frequently- pt bends arm. Pt talking on phone, ate 7 sherberts, 5 popsicles and then states abdominal pain 30/03.... CIWA at 2000- 8 at 0000- 8. Several times heard loud noises from room. Pt threw phone on floor x2 moved bed next to window. bed up on highest level. Pt argumentative. Charge nurse notified about pt noncompliance to care. Charge nurse spoke to pt . IVF discontinued due to pt able to eat no N/V and pt constantly bending arm causing IVF to stop. Notified hospitalist- received order ok to d/c IVF. Pt on phone talking about meeting a friend in am. Roommate of pt moved to another room due to loud , constant activity of pt.
[2022-09-09 06:00] VITALS: BP 113/68; PULSE 59; RESP 18; TEMP 36.6; O2SAT 100
[2022-09-09 06:37] LABS: Hematocrit 41.3 % (42.0-52.0); Hemoglobin 13.8 g/dL (14.0-18.0); Mean Corpuscular HGB Conc 33.4 g/dl (32-36); Mean Corpuscular Hemoglobin 30.2 pg (26-34); Mean Corpuscular Volume 90.4 fl (80-100); Mean Platelet Volume 11.1 fl (7.4-10.4); Platelet Count Result 177 k/mm3 (150-375); Red Blood Count 4.57 M/mm3 (4.6-6.20); Red Cell Distribution Width 12.1 % (11.5-14.5)
[2022-09-09 06:57] LABS: Anion Gap 6 mmol/L (8-16); Blood Urea Nitrogen 8 mg/dL (9-20); Calcium 8.1 mg/dL (8.4-10.2); Carbon Dioxide 23 mmol/L (22-30); Chloride 107 mmol/L (98-107); Estimated CRCL calculation 124 ml/min; Estimated Glomerular Filt Rate > 60; Glucose 87 mg/dL (65-110); Potassium 3.7 mmol/L (3.4-5.0); Sodium 136 mmol/L (137-145)
[2022-09-09] MEDS: THIAMINE HCL 100 MG TABLET PO (08:51)
[2022-09-09] MEDS: NICOTINE (*PBKC) 21 MG PATCH 1 PATCH TRANSDERM (08:51)
[2022-09-09] MEDS: FOLIC ACID 1 MG TABLET PO (08:51)
[2022-09-09] MEDS: LORazepam INJ (*CRX) 2 MG/ML VIAL 0.5 MG IV PUSH (08:56)
--- NOTE | 2022-09-09 10:51 | PC.NURSE ---
upon making rounds, at approx 1035 pt told nurse that he plans to sign out AMA after. pt was educated on the risks. pt still adamant about signing out AMA. HCP was informed via telephone at [phone]. HCP states she will talk to pt as well. will follow up with update to situation as it arises
--- NOTE | 2022-09-09 11:55 | PC.NURSE ---
pt states to this nurse that he changed his mind about leaving AMA. pt states he plans to stay and continue care.
--- NOTE | 2022-09-09 13:57 | PM.IMPN ---
Progress Note: A&P Assessment and Plan (1) Adynamic ileus: Code(s): K56.0 - Paralytic ileus Status: Acute Assessment and Plan: patient presented with complaints of abdominal pain 1 hour following leaving the hospital against medical advice after being admitted for ileus 1 day prior abdominal x-ray on presentation showed mildly dilated small bowel without focal transition point identified consistent with adynamic ileus small-bowel follow-through completed earlier that day from prior admission with similar findings, no evidence of intussusception patient is tolerating clear liquid diet. advanced to full liquid diet today continue to advance to bland/ low-fiber diet this evening if tolerating well no nausea or vomiting. no indication for NG tube at this time. repeat KUB tomorrow (2) Polysubstance abuse: Code(s): F19.10 - Other psychoactive substance abuse, uncomplicated Status: Acute Assessment and Plan: daily drug use including cocaine, heroin, and benzodiazepines lorazepam as needed for withdrawal symptoms (3) Tobacco abuse: Code(s): Z72.0 - Tobacco use Status: Acute Assessment and Plan: patient smokes 1/2 pack per day nicotine patch as needed during admission (4) Alcohol abuse: Code(s): F10.10 - Alcohol abuse, uncomplicated Status: Acute Assessment and Plan: patient admits to drinking 1/2 bottle of [place] per day and 1/2 case of [place] Light per day continue CIWA protocol. scores ranging from 0-8 today continue thiamine and folic acid Ativan as needed for withdrawal symptoms consider Librium taper if CIWA scores become more elevated (5) Coronary artery disease: Code(s): I25.10 - Atherosclerotic heart disease of [place] coronary artery without angina pectoris Status: Acute Assessment and Plan: no acute issues at this time Subjective Date/time seen: 09/09/22 13:57 Interval history: date of service: 09/08/2022 You Erickson is a 36-year-old male with a history of polysubstance abuse, alcohol abuse, tobacco abuse, and coronary artery disease who is seen in follow-up for ileus. he endorses 22/10 abdominal pain today. Endorses nausea but no episodes of emesis. States he is still having frequent stools, proximally once an hour but states they are becoming more formed and chunky. He denies fevers or chills. Denies any withdrawal symptoms including anxiety, restlessness, tremors, sweats. He has no additional concerns. Earlier today the patient stated that he would need to sign out against medical advice as he needs to get home to his kids, but then stated he was not able to find a ride home and because he was still having pain he felt that he should stay. Review of Systems Review of Systems: All systems reviewed & are unremarkable except as noted in HPI and below Exam Narrative: General: Thin, well-appearing 36-year-old male, sitting up in bed, comfortable, NARD Neuro: awake, alert and oriented x4, speech clear, no focal neuro deficits noted HEENMT: normocephalic, atraumatic, EOMI, sclerae anicteric Respiratory: clear to auscultation bilaterally, nonlabored breathing Cardio: regular rate, regular rhythm with S1-S2 Abdomen: nondistended, normoactive bowel sounds, soft, slightly tender to palpation in left lower quadrant with voluntary guarding Extremities: no edema, erythema, or tenderness to palpation Skin: no rashes or lesions, warm and dry Psych: appropriate mood and affect, judgment and insight intact Objective Data Vital Signs Vital Signs: Vital Signs - 24 hr 09/08/22 16:00 09/08/22 14:00 09/08/22 20:00 Temperature 98.8 F Pulse Rate 71 Respiratory Rate 16 Blood Pressure 120/85 109/60 Pulse Oximetry 98 Oxygen Delivery Room Air 09/08/22 22:00 09/09/22 06:00 09/09/22 08:00 Temperature 97.8 F 97.8 F Pulse Rate 67 59 L Respiratory Rate 18 18
[2022-09-09 14:00] VITALS: BP 98/62; PULSE 66; RESP 20; TEMP 36.6; O2SAT 99
--- NOTE | 2022-09-09 15:08 | PC.NURSE ---
pt decided to leave ama after educated on risks. pt was also told to come to er for worsening symptoms. hcp was informed pt left ama.
--- NOTE | 2022-09-09 15:44 | PCCCNOTE ---
On 09/09/22, the student, [Jazlyn Flores], provided care and completed [facility] documentation on this patient. I have reviewed the student's documentation and agree with the findings.
== END 2022-09-09 14:45 | disposition left against medical advice (07) | DRG 247 ==
LOC: ANHED 19:44 → ANH3MEDSUR 23:43
PROVIDERS: Admitting Provider Internal Medicine; Emergency Provider Emergency Medicine; Visit Provider Physician Assistant
DX: K56.0 Paralytic ileus (principal); F10.10 Alcohol abuse, uncomplicated; F19.10 Other psychoactive substance abuse, uncomplicated; F17.210 Nicotine dependence, cigarettes, uncomplicated; I25.10 Atherosclerotic heart disease of native coronary artery without angina pectoris; Z95.5 Presence of coronary angioplasty implant and graft
CPT/HCPCS: 36415; 74018; 80048; 80053; 81003; 83605; 83690; 83735; 85025; 85027; 85610; 85730; 96361; 96374; 96375; 96376; 99285; A9270; G0378; G0379; J2060; J2270; J2405; J7030